=== PATIENT | male | born 1990 | race Caucasian/White ===

== ENCOUNTER 2019-04-01 18:48 | Emergency (ER) | payer BC, OTHER ==
[2019-04-01 19:50] VITALS: BP 124/81
--- NOTE | 2019-04-01 20:17 | UC ---
Skin Complaint HPI - HPI Summary HPI Summary: 29-year-old male comes in with a chief complaint of a rash is been going on for 3 days. He had been weaned racking with shorts on and went to bed in the morning he woke up with a rash on his lower legs and his distal arms. The red itchy. There are some vesicles. That rashes got a little bit worse is not improved. The last day the patient has had watery diarrhea 1. And also now he is feeling like his throat feels tight. It hurts a little bit to swallow but not bad. He has been able swallow and eat and drink. No shortness of breath. No difficulty breathing. No fevers. - History of Current Complaint Chief Complaint: UCSkin Time Seen by Provider: 04/01/19 20:01 Stated Complaint: DIARRHEA,ST,SKIN CONCERN HANDS/LEGS Pain Intensity: 7 - Allergy/Home Medications Allergies/Adverse Reactions: Allergies Allergy/AdvReac Type Severity Reaction Status Date / Time No Known Allergies Allergy Verified 04/01/19 19:50 PMH/Surg Hx/FS Hx/Imm Hx Previously Healthy: Yes - Surgical History Surgical History: None - Family History Known Family History: Positive: Non-Contributory - Social History Alcohol Use: Occasionally Substance Use Type: None Smoking Status (MU): Never Smoked Tobacco Review of Systems All Other Systems Reviewed And Are Negative: Yes Constitutional: Positive: Negative Skin: Positive: Rash Eyes: Positive: Negative ENT: Positive: Sore Throat Respiratory: Positive: Negative Cardiovascular: Positive: Negative Gastrointestinal: Positive: Diarrhea Motor: Positive: Negative Neurovascular: Positive: Negative Musculoskeletal: Positive: Negative Neurological: Positive: Negative Psychological: Positive: Negative Is Patient Immunocompromised?: No Physical Exam Triage Information Reviewed: Yes Appearance: Well-Appearing, No Pain Distress, Well-Nourished Vital Signs: Initial Vital Signs Temp 98.4 F 04/01/19 19:40 Pulse 78 04/01/19 19:40 Resp 18 04/01/19 19:40 BP 124/81 04/01/19 19:40 Pulse Ox 98 04/01/19 19:40 Vital Signs Reviewed: Yes Eye Exam: Normal Eyes: Positive: Conjunctiva Clear ENT: Positive: Pharynx normal, Uvula midline, Other - POSTERIOR PHARYNX SYMETRICAL AND OPEN. Negative: Tonsillar swelling, Tonsillar exudate, Muffled voice, Hoarse voice Neck: Positive: Supple, Nontender Respiratory: Positive: Lungs clear, Normal breath sounds, No respiratory distress Cardiovascular: Positive: RRR Musculoskeletal Exam: Normal Musculoskeletal: Positive: Strength Intact, ROM Intact Neurological Exam: Normal Neurological: Positive: Alert, Muscle Tone Normal Psychological Exam: Normal Psychological: Positive: Normal Response To Family, Age Appropriate Behavior Skin: Positive: Rashes - Scattered 1-2 cm slightly raised patches of erythematous rash with occasional vesicles on the anterior lower legs and on the wrists and forearms. Course/Dx - Course Course Of Treatment: STREP NEGATIVE. DISCUSSED IF THROAT GOT WORSE, NEEDS REEVALUATION - Diagnoses Provider Diagnosis: Contact dermatitis, Pharyngitis Discharge - Sign-Out/Discharge Documenting (check all that apply): Patient Departure All imaging exams completed and their final reports reviewed: No Studies - Discharge Plan Condition: Stable Disposition: HOME Prescriptions: predniSONE TAB* [Deltasone 20 MG TAB*] 40 mg PO DAILY PRN #10 tab PRN Reason: Rash Patient Education Materials: Contact Dermatitis (ED) Referrals: [facility] [Outside] Additional Instructions: FOLLOW UP WITH YOUR DOCTOR IF NOT COMPLETELY IMPROVED. GET RECHECKED SOONER IF YOUR CONDITION WORSENS; DIFFICULTY BREATHING OR SWALLOWING OR ANY QUESTIONS OR CONCERNS. - Billing Disposition and Condition Condition: STABLE Disposition: Home
[2019-04-01] MEDS ORDERED: predniSONE TAB* 20 MG PO ONE (20:38)
== END 2019-04-01 20:44 | disposition home or self-care (01) ==
LOC: UCCORT 18:48
DX: J02.9 Acute pharyngitis, unspecified (principal); R19.7 Diarrhea, unspecified; L25.9 Unspecified contact dermatitis, unspecified cause
CPT/HCPCS: 87651; 99202; G0463; J7512